=== PATIENT | female | born 1975 | race Two or more races ===

== ENCOUNTER 2021-12-11 03:36 | Emergency (ER) | payer MEDICAID, SELFPAY ==
--- NOTE | 2021-12-11 04:44 | CT_ITS ---
EXAM: CT ABDOMEN AND PELVIS WITH INTRAVENOUS CONTRAST CLINICAL INDICATION: PAIN TECHNIQUE: Helically acquired images were obtained of the abdomen and pelvis with intravenous contrast. DLP: 555.45 mGy-cm and CTDI: 16.[address] exam was performed using one or more of the following dose reduction techniques: automated exposure control, adjustment of the mA and/or kV according to patient size, and/or use of iterative reconstruction technique. This report was created using [employer] report generation technology. CONTRAST: IV 100mL Isovue-300 COMPARISON: None. FINDINGS: LOWER THORAX: Minimal hiatal hernia is suspected. Lung bases are clear. No cardiomegaly. No significant pericardial effusion. ABDOMEN: LIVER: Liver demonstrates mild fatty infiltration. GALLBLADDER AND BILE DUCTS: Gallbladder demonstrates a phrygian cap, normal variant. No gallstones or findings of acute cholecystitis. No biliary ductal dilatation. PANCREAS: Unremarkable. No focal cystic or solid mass. SPLEEN: Unremarkable. Normal size without focal cystic or solid mass. ADRENALS: Unremarkable. No nodules. KIDNEYS AND URETERS: Unremarkable. Normal renal size and position. No hydronephrosis. STOMACH AND BOWEL: Minimal colonic diverticulosis, without evidence for acute diverticulitis. Mild thickening of the wall of the gastric antrum, most likely due to lack of distention rather than an enteritis as this portion of the stomach is decompressed. No periduodenal inflammatory changes are seen and there is no small bowel distention. Loops. PELVIS: APPENDIX: Normal. No evidence of acute appendicitis. BLADDER: Partially distended urinary bladder is unremarkable. REPRODUCTIVE: Unremarkable as visualized. No adnexal mass. ABDOMEN and PELVIS: INTRAPERITONEAL SPACE: Unremarkable. No ascites or other fluid collection. No free air. BONES/JOINTS: Unremarkable. No suspicious lytic or blastic abnormality. SOFT TISSUES: Unremarkable. No discrete abdominal or pelvic wall hernia. VASCULATURE: Unremarkable. Abdominal aorta is non-dilated. LYMPH NODES: Unremarkable. No enlarged lymph nodes. CT/Abdomen/Pelvis W IV Cont ONLY IMPRESSION: Normal appendix. Suspect minimal hiatal hernia. Mild thickening of the wall of the gastric antrum, most likely due to lack of distention with enteritis/gastritis felt less likely. Minimal colonic diverticulosis without evidence for acute diverticulitis. No findings of small bowel obstruction, colitis or obstructive uropathy. Electronically Signed: Khai Mcarthur MD at 5:11 EDT ,
--- NOTE | 2021-12-11 07:30 | US_ITS ---
STUDY: ULTRASOUND OF THE FEMALE PELVIS - COMPLETE REASON FOR EXAM: Female, 46 years old. LEFT PELVIC PAIN X 2 DAYS -- HX OF ECTOPIC 2017 -- NEGATIVE PT LMP: 11/29/2021. TECHNIQUE: Transvaginal TECHNICAL QUALITY: Adequate. COMPARISON: None. FINDINGS: The uterus is anteverted and is in a midline position. The uterus measures 6.9 cm x 4.3 cm x 3.5 cm. Normal uterine cervix. The endometrium measures 4 mm in thickness, and is hyperechoic. There is no demonstrated endometrial mass. There is no demonstrated myometrial mass. I.U.D. - The patient does not have an I.U.D. The right ovary is visualized. The right ovary measures 2.1 cm x 1.7 cm x 1.1 cm. There is no right ovarian cyst or ovarian mass. There is no visualized right adnexal mass or complex lesion. There is normal arterial and normal venous vascularity. The left ovary is visualized. The left ovary measures 2.3 cm x 1.8 cm x 1.3 cm. There is no left ovarian cyst or ovarian mass. There is no visualized left adnexal mass or complex lesion. There is normal arterial and normal venous vascularity. There is no fluid in the cul-de-sac. US/Transvaginal Non- IMPRESSION: Normal female pelvis. Electronically Signed: Herman Chan MD at 8:39 EDT ,
[2021-12-11 07:52] LABS: AST(SGOT) 17 U/L (15-37); Albumin, Serum 4.1 g/dL (3.2-5.0); Amylase 62 U/L (25-115); BUN 10 mg/dL (7-18); BUN/Creat Ratio 12.2 RATIO (10-20); Calcium,Total 9.5 mg/dL (8.5-10.1); Creatinine, Serum 0.82 mg/dL (0.55-1.02); EST Glomerular Filtration Rate 80 mL/min (>60); Est Glom Filt Rate - Afr Amer 97 mL/min (>60); Globulin 4.3 g/dL (2.2-4.2); Glucose 129 mg/dL (74-106); Lipase 56 U/L (73-393); Protein, Total 8.4 g/dL (6.4-8.2)
[2021-12-11 07:53] LABS: Alanine Aminotransfer ALT/SGPT 42 U/L (13-56); Alkaline Phosphatase 75 U/L (45-117); Anion Gap 10 (5-15); Chloride 101 mmol/L (98-107); Internal QC Validated? YES +Cl - CLEAR BKGD; Potassium 3.7 mmol/L (3.5-5.1); Pregnancy, Serum, hCG Quali. NEGATIVE Negative; Sodium Level 137 mmol/L (136-145)
[2021-12-11 09:14] LABS: Color, Urine Yellow (Yellow); Mucous, Urine 0 SEEN /hpf (<or=2+)
[2021-12-11 09:15] LABS: Glucose, Dipstick Normal (Normal); Ketone-Dipstick 150 mg/dl (Negative); Protein-Dipstick 30 mg/dl (Negative); Specific Gravity, Urine 1.015 (1.002-1.030); Urine Bilirubin Dipstick Negative (Negative); Urine Clarity Sl Cloudy (Clear); Urine pH 6.5 (5.0 - 8.0)
[2021-12-11 09:16] LABS: Bacteria 1+ /hpf (None Seen); Leukocyte Esterase-Dipstick 500 /ul (Negative); Nitrite-Dipstick Positive (Negative); Occult Blood-Urine 50 /ul (Negative); Red Blood Cells-Urine 0-5 SEEN /hpf (0-5); Squamous Epithelial Cells - UA 10-25 SEEN /hpf (5-10); Urine Urobilinogen Normal (Normal); White Blood Cells 0-5 SEEN /hpf (0-5)
--- NOTE | 2021-12-11 09:40 | EX.ED.DYSGE1 ---
HPI History of Present Illness Chief Complaint: Abd Pain PFSH PFSH Home Medications cephalexin 500 mg capsule 500 mg PO Q6 #21 caps 12/11/21 [Rx Last Taken Unknown] hydrocodone-acetaminophen 5-325mg 5mg-325mg 1 tab PO Q8H PRN pain 3 days #9 tabs 12/11/21 [Rx Last Taken Unknown] ibuprofen 600 mg tablet 600 mg PO Q6H PRN PRN fever or pain #20 tabs 12/11/21 [Rx Last Taken Unknown] MDM MDM MDM Narrative Medical decision making narrative: She was signed out to me. Initial note started on downtime and is to be uploaded. Patient is presenting with pelvic pain, suprapubic pain and some mild left flank pain. Her initial work-up including a CT of the abdomen pelvis and lab work was largely negative. Pelvic ultrasound is normal. Clinically I do not think this is tubo-ovarian abscess or pelvic inflammatory disease causing her symptoms. She does not have any risk factors and denies any concerns for this. She does have positive nitrates, 500 leukoesterase, 0-5 white blood cells and 1+ bacteria with squamous epithelial consistent emanation. This is atypical but given her symptoms I do suspect she is UTI. In addition she reports that she has been having increased frequency of urination especially at night but denies dysuria. Will be treated as if she has an early pyelonephritis given the severity of her symptoms. Is given a dose of Toradol as well as first dose of Keflex and [place] in the emergency room. Is discharged with prescription for [place], Keflex and Motrin. Counseled on return precautions. Is given outpatient referral to urology should her symptoms persist. Lab Data Labs: Laboratory Results - last 24 hr 12/11/21 12/11/21 12/11/21 03:58 03:58 05:18 Sodium 137 Potassium 3.7 Chloride 101 Carbon Dioxide 26.0 Anion Gap 10 BUN 10 Creatinine 0.82 Est GFR (MDRD) Af Amer 97 Est GFR (MDRD) Non-Af 80 BUN/Creatinine Ratio 12.2 Glucose 129 H Calcium 9.5 Total Bilirubin 1.50 H AST 17 ALT 42 Alkaline Phosphatase 75 Total Protein 8.4 H Albumin 4.1 Globulin 4.3 H Albumin/Globulin Ratio 1.0 Amylase 62 Lipase 56 L Serum , Qual NEGATIVE Urine Color Yellow Urine Clarity Sl Cloudy Urine pH 6.5 Ur Specific [place] 1.015 Urine Protein 30 H Urine Glucose (UA) Normal Urine Ketones 150 A* Urine Occult Blood 50 H Urine Nitrite Positive H Urine Bilirubin Negative Urine Urobilinogen Normal Ur Leukocyte Esterase 500 H Urine RBC 0-5 SEEN Urine WBC 0-5 SEEN Ur Squamous Epith Cells 10-25 SEEN Urine Bacteria 1+ Urine Mucus 0 SEEN Radiography Diagnostic Testing: Clinical Impression(s) from Imaging Studies Abdomen/Pelvis CT 12/11/21 04:44 IMPRESSION: Normal appendix. Suspect minimal hiatal hernia. Mild thickening of the wall of the gastric antrum, most likely due to lack of distention with enteritis/gastritis felt less likely. Minimal colonic diverticulosis without evidence for acute diverticulitis. No findings of small bowel obstruction, colitis or obstructive uropathy. Electronically Signed: Khai Mcarthur MD at 5:11 EDT , ADDENDUM: 12/11/21 0844 IMPRESSION: Normal appendix. Suspect minimal hiatal hernia. Mild thickening of the wall of the gastric antrum, most likely due to lack of distention with enteritis/gastritis felt less likely. Minimal colonic diverticulosis without evidence for acute diverticulitis. No findings of small bowel obstruction, colitis or obstructive uropathy. Electronically Signed: Khai Mcarthur MD at 5:11 EDT , Transvaginal US 12/11/21 07:30 IMPRESSION: Normal female pelvis. Electronically Signed: Herman Chan MD at 8:39 EDT , Discharge Plan Triage Chief Complaint: Abd Pain ED Provider: Jeyson Burton Dx/Rx/DC Orders Clinical Impression: UTI (urinary tract infection), Dehydration, Abdominal pain, suprapubic Instructions: ED CYSTITIS Female Adult Prescriptions: New hydrocodone-acetaminophen 5-325 mg tablet 1 tab PO Q8H PRN (Reason: pain) 3 Days Qty: 9 0RF cephalexin 500 mg capsule 500 mg PO Q6 Qty: 21 0RF ibuprofen 600 mg tablet 600 mg PO Q6H PRN PRN (Reason: fever or pain) Qty: 20 0RF Primary Care Provider: Care Physician,No Primary Referrals: Arleth Rosales MD [STAFF PHYSICIAN] - As Needed Disposition Disposition: Home, Self Care Discharge Date/Time: 12/11/21 08:06
[2021-12-11] MEDS: Cephalexin 250 MG Capsule 500 MG PO (09:42)
[2021-12-11] MEDS: Ketorolac 15 MG/ML Vial IV (09:42)
[2021-12-11] MEDS: HYDROcodone Bitartrate/Apap 5/325 Tablet PO (09:42)
[2021-12-11 13:36] LABS: Hematocrit 44.4 % (37-47); Hemoglobin 14.8 g/dL (12.0-15.0); Mean Corp Hgb Conc 33.3 g/dL (32-36); Mean Corpuscular Hgb 31.1 pg (27.0-32.0); Mean Corpuscular Volume 93.3 fL (81-99); Red Blood Count 4.76 M/mm3 (4.2-5.4); White Blood Count 10.4 K/mm3 (4.4-11.0)
[2021-12-11 13:37] LABS: Absolute Lymphocyte Count 1.43 X10^3/uL (0.83-4.51); Absolute Neutrophil Count 8.3 X10^3/uL (2.0-7.7); Basophil# 0.03 X10^3/uL; Basophil% 0.3 % (0-1); Lymphocyte # 1.43 X10^3/ul (0.83-4.51); Lymphocyte % 13.8 % (19-41); Mean Platelet Vol. 10.4 fl (6.2-12.0); Monocyte# 0.57 X10^3/uL; Monocyte% 5.5 % (0-10); Neutrophil # 8.28 X10^3/uL (2.7-7.7); Platelet Count 334 K/mm3 (150-450); RBC Distribution Width CV 12.5 % (11.6-14.6); RBC Distribution Width SD 43.2 fl (35.1-43.9)
[2021-12-11 13:38] LABS: NRBC Flagged by Analyzer 0 % (0-5)
--- NOTE | 2021-12-11 22:11 | EX.ED.DYSGE1 ---
HPI History of Present Illness Chief Complaint: Abd Pain Narrative Narrative: Patient is with lower abdominal pain. This started yesterday morning and is gradual onset. She did have nausea and a couple episodes of vomiting but does not feel as nauseated now. All of her pain is in the lower abdomen but does radiate a little bit toward her left posterior flank. She has never had this before. She is really denying any notable urinary symptoms to me. She does have a history of questionable surgery which sounds like ovarian cyst surgery about 7 or so years ago. She is otherwise healthy and on no meds and no allergies. Nothing consistently makes this better or worse. This patient is PFSH PFS Home Medications cephalexin 500 mg capsule 500 mg PO Q6 #21 caps 12/11/21 [Rx Last Taken Unknown] hydrocodone-acetaminophen 5-325mg 5mg-325mg 1 tab PO Q8H PRN pain 3 days #9 tabs 12/11/21 [Rx Last Taken Unknown] ibuprofen 600 mg tablet 600 mg PO Q6H PRN PRN fever or pain #20 tabs 12/11/21 [Rx Last Taken Unknown] ROS ROS ED Constitutional Constitutional ED: Denies chills or fever(s) ENT ENT ED: Denies rhinorrhea or sore throat Cardiovascular Cardiovascular: Denies chest pain Respiratory/Chest Respiratory/Chest: Denies cough or dyspnea Gastrointestinal Gastrointestinal: Reports abdominal pain, nausea and vomiting; Denies constipation, diarrhea or melena Genitourinary Genitourinary ED: Denies dysuria or urinary frequency Musculoskeletal Musculoskeletal: Reports back pain Integumentary Denies rash Neurologic Neurologic: Denies paresthesias or weakness Endocrine Endocrinology: Denies polydipsia or polyuria Hematologic/Lymphatic Hematologic/Lymphatic: Denies easy bleeding or easy bruising Allergic/Immunologic Allergic/Immunologic ED: Denies urticaria EXAM Physical Exam Const Positive well nourished and well developed General Appearance ED: well developed and NAD; Negative for pallor Eyes General Eye ED: Negative for scleral icterus Resp normal respiratory effort and clear to auscultation bilaterally Cardio regular rate, regular rhythm and no murmurs GI normal to inspection, nondistended, normoactive bowel sounds GI Narrative: Abdomen is thin and nondistended. But she does have some tenderness in the suprapubic area and slightly to each side. Very mild left CVA tenderness but no rashes noted. Back/Spine General Back: CVA tenderness Extremity normal to inspection Neuro Sensorium / Orientation: alert Psych mental status grossly normal Skin no rashes or lesions noted General Skin Exam: Negative for jaundice or pallor MDM MDM MDM Narrative Medical decision making narrative: Patient CBC is normal. Electrolytes are normal other than glucose of 129. Total bili was 1.5. is negative. Urine showed some nitrites and leukocyte esterase but no white cells. This is questionable for UTI but certainly may be the cause of her symptoms. A CT scan was done because of her discomfort. This showed no acute process and no inflammatory changes of the bladder or kidney. We did then order an ultrasound because of the possibility of prior surgery to make sure there was not something we are missing. This is turned over to the oncoming physician. Lab Data Attestation: I reviewed the patient's lab results. Labs: Laboratory Results - last 24 hr 12/11/21 12/11/21 12/11/21 03:58 03:58 03:58 WBC 10.4 RBC 4.76 Hgb 14.8 Hct 44.4 MCV 93.3 MCH 31.1 MCHC 33.3 RDW Std Deviation 43.2 RDW Coeff of Jessica 12.5 Plt Count 334 MPV 10.4 Immature Gran % (Auto) 0.400 Neut % (Auto) 80.0 H Lymph % (Auto) 13.8 L Love % (Auto) 5.5 Eos % (Auto) 0.0 Baso % (Auto) 0.3 Absolute Neuts (auto) 8.3 H Absolute Lymphs (auto) 1.43 Nucleated RBC % 0 Sodium 137 Potassium 3.7 Chloride 101 Carbon Dioxide 26.0 Anion Gap 10 BUN 10 Creatinine 0.82 Est GFR (MDRD) Af Amer 97 Est GFR (MDRD) Non-Af 80 BUN/Creatinine Ratio 12.2 Glucose 129 H Calcium 9.5 Total Bilirubin 1.50 H AST 17 ALT 42 Alkaline Phosphatase 75 Total Protein 8.4 H Albumin 4.1 Globulin 4.3 H Albumin/Globulin Ratio 1.0 Amylase 62 Lipase 56 L Serum , Qual NEGATIVE Urine Color Urine Clarity Urine pH Ur Specific [place] Urine Protein Urine Glucose (UA) Urine Ketones Urine Occult Blood Urine Nitrite Urine Bilirubin Urine Urobilinogen Ur Leukocyte Esterase Urine RBC Urine WBC Ur Squamous Epith Cells Urine Bacteria Urine Mucus 12/11/21 05:18 WBC RBC Hgb Hct MCV MCH MCHC RDW Std Deviation RDW Coeff of Jessica Plt Count MPV Immature Gran % (Auto) Neut % (Auto) Lymph % (Auto) Love % (Auto) Eos % (Auto) Baso % (Auto) Absolute Neuts (auto) Absolute Lymphs (auto) Nucleated RBC % Sodium Potassium Chloride Carbon Dioxide Anion Gap BUN Creatinine Est GFR (MDRD) Af Amer Est GFR (MDRD) Non-Af BUN/Creatinine Ratio Glucose Calcium Total Bilirubin AST ALT Alkaline Phosphatase Total Protein Albumin Globulin Albumin/Globulin Ratio Amylase Lipase Serum , Qual Urine Color Yellow Urine Clarity Sl Cloudy Urine pH 6.5 Ur Specific [place] 1.015 Urine Protein 30 H Urine Glucose (UA) Normal Urine Ketones 150 A* Urine Occult Blood 50 H Urine Nitrite Positive H Urine Bilirubin Negative Urine Urobilinogen Normal Ur Leukocyte Esterase 500 H Urine RBC 0-5 SEEN Urine WBC 0-5 SEEN Ur Squamous Epith Cells 10-25 SEEN Urine Bacteria 1+ Urine Mucus 0 SEEN Radiography Diagnostic Testing: Clinical Impression(s) from Imaging Studies Abdomen/Pelvis CT 12/11/21 04:44 IMPRESSION: Normal appendix. Suspect minimal hiatal hernia. Mild thickening of the wall of the gastric antrum, most likely due to lack of distention with enteritis/gastritis felt less likely. Minimal colonic diverticulosis without evidence for acute diverticulitis. No findings of small bowel obstruction, colitis or obstructive uropathy. Electronically Signed: Khai Mcarthur MD at 5:11 EDT Reading Location ID and State: [facility] / [place] Tel , Service support , ADDENDUM: 12/11/21 0844 IMPRESSION: Normal appendix. Suspect minimal hiatal hernia. Mild thickening of the wall of the gastric antrum, most likely due to lack of distention with enteritis/gastritis felt less likely. Minimal colonic diverticulosis without evidence for acute diverticulitis. No findings of small bowel obstruction, colitis or obstructive uropathy. Electronically Signed: Khai Mcarthur MD at 5:11 EDT , Transvaginal US 12/11/21 07:30 IMPRESSION: Normal female pelvis. Electronically Signed: Herman Chan MD at 8:39 EDT , Discharge Plan Triage Chief Complaint: Abd Pain ED Provider: Jeyson Burton Dx/Rx/DC Orders Clinical Impression: UTI (urinary tract infection), Dehydration, Abdominal pain, suprapubic Instructions: ED CYSTITIS Female Adult Prescriptions: New hydrocodone-acetaminophen 5-325 mg tablet 1 tab PO Q8H PRN (Reason: pain) 3 Days Qty: 9 0RF cephalexin 500 mg capsule 500 mg PO Q6 Qty: 21 0RF ibuprofen 600 mg tablet 600 mg PO Q6H PRN PRN (Reason: fever or pain) Qty: 20 0RF Primary Care Provider: Care Physician,No Primary Referrals: Arleth Rosales MD [STAFF PHYSICIAN] - As Needed Disposition Disposition: Home, Self Care Discharge Date/Time: 12/11/21 08:06
== END 2021-12-11 08:06 | disposition home or self-care (01) ==
LOC: ED 07:39
PROVIDERS: Emergency Provider Emergency Medicine; Visit Provider Emergency Medicine
DX: N39.0 Urinary tract infection, site not specified (principal); E86.0 Dehydration
CPT/HCPCS: 74177; 76830; 80053; 81001; 82150; 83690; 84703; 85025; 93976; 96374; 96375; 96376; 99284; J2405

== ENCOUNTER 2021-12-12 09:08 | Emergency (ER) | payer MEDICAID, SELFPAY ==
[2021-12-12 09:09] VITALS: BP 127/98; PULSE 87; RESP 18; TEMP 36.6; O2SAT 98; BMI 25.4
--- NOTE | 2021-12-12 09:22 | EDS_ITS ---
HPI HPI - GI History of Present Illness Chief Complaint: Abd Pain Detail of Chief Complaint: Bilateral lower abdominal pain and left flank pain with nausea Informant: patient and spouse/S.O. Abdominal Pain/Flank Pain Onset: Days Context: Sudden Onset Timing: Continuous Quality: - (Pain) Location: LUQ, RLQ, LLQ and Left Flank Current Severity: Moderate Maximum Severity: Severe Worsened by: - (Hurts to walk) Relieved by: Nothing Nausea/Vomiting/Emesis GI Symptom: Positive for Nausea; Negative for Vomiting Onset: Days Diarrhea/Melena/Hematochezia GI Symptom: Positive for - (No bowel movement for 2 days); Negative for Diarrhea, Melena or Hematochezia Associated Symptoms Associated Symptoms: Positive for - (Problem urinating); Negative for Dysuria, Frequency, Hematuria or Urgency Narrative Narrative: Patient is a 46-year-old [place] woman who recently moved from [place]. She was seen yesterday by Dr. Burton and Dr. Johnson. She had a significant work- up which included blood work, urinalysis, CAT scan and pelvic ultrasound. There was concern she may have a urinary tract infection. Review of urinalysis indicates the urine specimen was contaminated. Patient was discharged with pres cription for [place] and cephalexin. Patient presents because she does not feel better. She endorses nausea without vomiting or diarrhea. She states she has not had a bowel movement in 2 days. She denies fever or chills. She denies discomfort when she urinates, blood in her urine or dark-colored urine. Prior similar symptoms: Yes Recent Illness/Hospitalization: Yes PFSH PFSH Medical History no medical history no medical history Home Medications cephalexin 500 mg capsule 500 mg PO Q6 #21 caps 12/11/21 [Rx Last Taken Unknown] hydrocodone-acetaminophen 5-325mg 5mg-325mg 1 tab PO Q8H PRN pain 3 days #9 tabs 12/11/21 [Rx Last Taken Unknown] ibuprofen 600 mg tablet 600 mg PO Q6H PRN PRN fever or pain #20 tabs 12/11/21 [Rx Last Taken Unknown] dicyclomine 10 mg capsule 20 mg PO TIDAC #20 CAPSULES 12/12/21 [Rx Last Taken Unknown] Allergy/AdvReac Type Severity Reaction Status Date / Time No Known Allergies Allergy Verified 12/12/21 09:11 Surgical History no surgical history no surgical history Social History (Updated 12/12/21 @ 09:[address] Ja Wolf MD) household members: spouse Smoking Status: Never smoker substance use type: does not use ROS ROS ED Constitutional Constitutional ED: Denies chills, fever(s), subjective, sweats or weight loss ENT ENT ED: Denies ear pain, rhinorrhea or sore throat Cardiovascular Cardiovascular: Denies chest pain, orthopnea, palpitations or paroxysmal n octurnal dyspnea Respiratory/Chest Respiratory/Chest: Denies cough, dyspnea, dyspnea on exertion, orthopnea or paroxysmal nocturnal dyspnea Gastrointestinal Gastrointestinal: Reports abdominal pain and constipation; Denies diarrhea, melena, nausea or vomiting Genitourinary Genitourinary ED: Reports other Details: Difficulty urinating ; Denies dysuria, hematuria or urinary frequency Musculoskeletal Musculoskeletal: Reports back pain; Denies arthralgias, myalgias or neck pain Neurologic Neurologic: Denies headache(s) or paresthesias Hematologic/Lymphatic Hematologic/Lymphatic: Denies easy bleeding, easy bruising or lymphadenopathy EXAM Physical Exam Const Vital Signs: 12/12/21 09:09 Temperature 97.9 F Temperature Source Temporal Pulse Rate 87 Respiratory Rate 18 Blood Pressure 127/98 H Blood Pressure Mean 107 Pulse Ox 98 Oxygen Delivery Method Room Air Positive well nourished and well developed Constitutional Narrative: Patient gait is shuffled. She is holding her abdomen as she walks. General Appearance ED: well developed and NAD; Negative for pallor HEENT Reports TM's clear and dry mucous membranes normocephalic and atraumatic Tympanic Membrane ED: Yes TM's clear Mouth ED: Yes dry mucous membranes Mouth: dry mucous membranes Eyes PERRL and EOMs intact bilaterally General Eye ED: Negative for pale conjunctiva or scleral icterus Neck no lymphadenopathy, supple and no JVD Resp normal respiratory effort and clear to auscultation bilaterally Cardio regular rate, regular rhythm, S1 normal heart sound, S2 normal heart sound and no murmurs GI non-tender, non-distended and no masses GI Narrative: There is no tenderness with distraction. Patient complains of pain when I laid my hand on her skin right upper quadrant. Inspection: Negative for abdominal distention Auscultation: hypoactive bowel sounds Palpation: soft; Negative for tender, hepatomegaly or splenomegaly Back/Spine no CVA tenderness Extremity full ROM General Extremety ED: Negative for edema or tenderness General Extremity: Negative for edema Neuro CN's II-XII intact bilaterally, moves all extremities and no sensory deficits noted Sensorium / Orientation: alert Psych thought process normal Psych Narrative: Affect is exaggerated Skin no wounds General Skin Exam: Negative for jaundice or pallor Lesions: no lesions Rashes: no rashes MDM MDM MDM Narrative Medical decision making narrative: Patient had significant work-up. Will review films myself to determine patient is obstipated. Repeat urine was obtained. Cath specimen was obtained since she was not able to give a clean-catch specimen that was not contaminated. Blood work was repeated since she is returning. CT from yesterday was reviewed. Patient has significant mount of gas noted throughout. There is also significant mount of stool in the ascending colon. Suspect this is the cause of her pain. She was instructed discontinue the [place] and antibiotics. She was placed on Bentyl and instructed to purchase Mylicon to help her expel the gas. Lab Data Attestation: I reviewed the patient's lab results. Lab results narrative: Urine is not consistent with infection. Patient is dehydrated with ketosis. CBC is unremarkable. Basic metabolic panel is unremarkable. Labs: Laboratory Results - last 24 hr 12/12/21 12/12/21 12/12/21 09:29 09:29 09:45 WBC 10.5 RBC 4.59 Hgb 14.4 Hct 42.2 MCV 91.9 MCH 31.4 MCHC 34.1 RDW Std Deviation 42.4 RDW Coeff of Jessica 12.6 Plt Count 308 MPV 10.0 Immature Gran % (Auto) 0.300 Neut % (Auto) 81.2 H Lymph % (Auto) 11.1 L [place] % (Auto) 7.2 Eos % (Auto) 0.0 Baso % (Auto) 0.2 Absolute Neuts (auto) 8.5 H Absolute Lymphs (auto) 1.16 Nucleated RBC % 0 Sodium 137 Potassium 3.6 Chloride 102 Carbon Dioxide 26.0 Anion Gap 9 BUN 11 Creatinine 0.75 Estim Creat Clear Calc 71.48 Est GFR (MDRD) Af Amer 107 Est GFR (MDRD) Non-Af 88 BUN/Creatinine Ratio 14.6 Glucose 127 H Calcium 9.4 Lipase 40 L Urine Color Yellow Urine Clarity Clear Urine pH 6.0 Ur Specific [place] 1.025 Urine Protein 100 H Urine Glucose (UA) Normal Urine Ketones 150 A* Urine Occult Blood 250 H Urine Nitrite Negative Urine Bilirubin Negative Urine Urobilinogen Normal Ur Leukocyte Esterase 100 H Urine RBC 0-5 SEEN Urine WBC 0-5 SEEN Ur Squamous Epith Cells 10-25 SEEN Urine Bacteria 0 SEEN Urine Mucus 2+ Discharge Plan Triage Chief Complaint: Abd Pain ED Provider: Ja Wolf Dx/Rx/DC Orders Clinical Impression: Abdominal pain, acute, Dehydration, Ketosis Instructions: ED Abdominal Pain Unkn Cause Fem, ED Dehydration (Adult) Prescriptions: New dicyclomine 10 mg capsule 20 mg PO TIDAC Qty: 20 0RF No Action hydrocodone-acetaminophen 5-325 mg tablet 1 tab PO Q8H PRN (Reason: pain) 3 Days Qty: 9 0RF cephalexin 500 mg capsule 500 mg PO Q6 Qty: 21 0RF ibuprofen 600 mg tablet 600 mg PO Q6H PRN PRN (Reason: fever or pain) Qty: 20 0RF Primary Care Provider: Care Physician,No Primary Referrals: Lux Valente DO [STAFF PHYSICIAN] - 5-7 Days Care Physician,No Primary [Primary Care Provider] - Activity Restrictions/Additional Instructions: 1. Take dicyclomine as prescribed for your abdominal discomfort 2. Purchase Mylicon to help expel the excess gas. 3. You need to increase your fluid intake Disposition Disposition: Home, Self Care
[2021-12-12 09:38] LABS: Absolute Lymphocyte Count 1.16 X10^3/uL (0.83-4.51); Absolute Neutrophil Count 8.5 X10^3/uL (2.0-7.7); Basophil# 0.02 X10^3/uL; Basophil% 0.2 % (0-1); Hematocrit 42.2 % (37-47); Hemoglobin 14.4 g/dL (12.0-15.0); Lymphocyte # 1.16 X10^3/ul (0.83-4.51); Lymphocyte % 11.1 % (19-41); Mean Corp Hgb Conc 34.1 g/dL (32-36); Mean Corpuscular Hgb 31.4 pg (27.0-32.0); Mean Corpuscular Volume 91.9 fL (81-99); Monocyte# 0.75 X10^3/uL; Monocyte% 7.2 % (0-10); NRBC Flagged by Analyzer 0 % (0-5); Neutrophil # 8.52 X10^3/uL (2.7-7.7); Neutrophil % 81.2 % (47-70); Platelet Count 308 K/mm3 (150-450); RBC Distribution Width CV 12.6 % (11.6-14.6); RBC Distribution Width SD 42.4 fl (35.1-43.9); Red Blood Count 4.59 M/mm3 (4.2-5.4); White Blood Count 10.5 K/mm3 (4.4-11.0)
[2021-12-12 09:49] LABS: Anion Gap 9 (5-15); BUN 11 mg/dL (7-18); BUN/Creat Ratio 14.6 RATIO (10-20); Calcium,Total 9.4 mg/dL (8.5-10.1); Chloride 102 mmol/L (98-107); Creatinine, Serum 0.75 mg/dL (0.55-1.02); EST Glomerular Filtration Rate 88 mL/min (>60); Est Glom Filt Rate - Afr Amer 107 mL/min (>60); Estimated Creatinine Clearance 71.48 ml/min; Glucose 127 mg/dL (74-106); Lipase 40 U/L (73-393); Potassium 3.6 mmol/L (3.5-5.1); Sodium Level 137 mmol/L (136-145)
[2021-12-12] MEDS: 0.9% Normal Saline 1,000 ML 1000 ML IV (09:51)
[2021-12-12 09:58] LABS: Bacteria 0 SEEN /hpf (None Seen)
[2021-12-12 10:08] LABS: Color, Urine Yellow (Yellow); Glucose, Dipstick Normal (Normal); Leukocyte Esterase-Dipstick 100 /ul (Negative); Nitrite-Dipstick Negative (Negative); Occult Blood-Urine 250 /ul (Negative); Protein-Dipstick 100 mg/dl (Negative); Specific Gravity, Urine 1.025 (1.002-1.030); Urine Bilirubin Dipstick Negative (Negative); Urine Clarity Clear (Clear); Urine Urobilinogen Normal (Normal)
[2021-12-12 10:12] LABS: Ketone-Dipstick 150 mg/dl (Negative)
[2021-12-12 10:20] LABS: Mucous, Urine 2+ /hpf (<or=2+); Squamous Epithelial Cells - UA 10-25 SEEN /hpf (5-10)
[2021-12-12 10:21] LABS: Red Blood Cells-Urine 0-5 SEEN /hpf (0-5); White Blood Cells 0-5 SEEN /hpf (0-5)
[2021-12-12] MEDS: Dicyclomine 10 MG Capsule 20 MG PO (10:35)
--- NOTE | 2021-12-12 11:30 | CM.ED ---
Social Work Note Reason for Referral: No PCP SW reviewed chart, no PCP listed for pt and pt listed as self-pay. SW in to speak with pt. Pt confirms she has no PCP or insurance. SW provided pt with PCP list/Healthcare and self-pay/financial packet. Shama Gaines LEGAL RECOVERY SPECIALIST, SECTION SUPERVISOR
== END 2021-12-12 11:35 | disposition home or self-care (01) ==
PROVIDERS: Emergency Provider Emergency Medicine; Visit Provider Emergency Medicine
DX: R10.9 Unspecified abdominal pain (principal); E86.0 Dehydration
CPT/HCPCS: 80048; 81001; 83690; 85025; 96360; 99285; J7030; P9612; A4216